=== PATIENT | male | born 1990 | race Caucasian/White ===

== ENCOUNTER 2017-05-05 00:29 | Emergency (ER) | payer OTHER ==
[2017-05-05 01:34] LABS: Hematocrit 44 % (42-52); Hemoglobin 15.5 g/dl (14.0-18.0); Mean Corpuscular HGB Conc 35 g/dl (31-36); Mean Corpuscular Hemoglobin 31 pg (27-31); Mean Corpuscular Volume 87 fL (80-94); Mean Platelet Volume 8 um3 (7.4-10.4); Red Blood Count 5.08 10^6/ul (4.0-5.4); Red Cell Distribution Width 14 % (10.5-15); White Blood Count 6.7 10^3/ul (3.5-10.8)
[2017-05-05 01:46] LABS: ALT 31 U/L (7-52); Acetaminophen < 15 mcg/mL; Albumin 4.6 g/dL (3.2-5.2); Alkaline Phosphatase 49 U/L (34-104); BUN/Creatinine Ratio 14.4 (8-20); Blood Urea Nitrogen 14 mg/dL (6-24); CO2 Carbon Dioxide 26 mmol/L (22-32); Calcium 9.1 mg/dL (8.6-10.3); Chloride 102 mmol/L (101-111); EGFR African American 119.4 (>60); EGFR Non-African American 92.8 (>60); Globulin 2.2 g/dL (2-4); Glucose 126 mg/dL (70-100); Salicylate < 2.50 mg/dL (<30); Sodium 137 mmol/L (133-145); Total Protein 6.8 g/dL (6.4-8.9)
[2017-05-05 01:48] LABS: Alcohol 408 mg/dL (<10)
[2017-05-05 02:18] LABS: AST 25 U/L (13-39); Anion Gap 9 mmol/L (2-11); Potassium 3.8 mmol/L (3.5-5.0); TSH (Thyroid Stimulating Horm) 0.84 mcIU/mL (0.34-5.60)
[2017-05-05] MEDS ORDERED: Thiamine IV 100 MG, Folic Acid IV* 1 MG, Multiple Vitamin IV ADULT* 10 ML in D5NS 0.9% ... IV ONE (02:20)
[2017-05-05] MEDS ORDERED: Thiamine IV* 100 MG, Folic Acid IV* 1 MG, Multiple Vitamin IV ADULT* 10 ML in NS 0.9% 1... IV ONE (02:21)
--- NOTE | 2017-05-05 02:38 | ED ---
Substance Abuse/Use - HPI Summary HPI Summary: Pt here w/ ETOH intoxication. Reports drinking earlier tonight (not sure what) and then he does not remember the details. Told staff he drank so much because he had an argument with another friend who was drinking too much. States he has not drank ETOH in many months, maybe 6 months. Does admit he takes anti- depressants, trying to get off of SSRI and transition to SNRI - he does not recall the names. Denies any other drug use, medical issues, or injuries tonight including but not limited to head injury and vomiting. He reports he's here because his friends were concerned. - History Of Current Complaint Chief Complaint: EDSubstanceAbuse Stated Complaint: ALCOHOL CONSUMPTION Time Seen by Provider: 05/05/17 00:56 Hx Obtained From: Patient - Allergies/Home Medications Allergies/Adverse Reactions: Allergies Allergy/AdvReac Type Severity Reaction Status Date / Time No Known Allergies Allergy Verified 05/05/17 00:36 PMH/Surg Hx/FS Hx/Imm Hx Previously Healthy: Yes Endocrine/Hematology History: Denies: Hx Anticoagulant Therapy, Hx Blood Disorders Psychiatric History: Reports: Hx Anxiety, Hx Depression - SSRI/SNRI Infectious Disease History: No Infectious Disease History: Denies: Traveled Outside the [place] in Last 30 Days - Family History Known Family History: Positive: None - pt denies - Social History Occupation: Employed Part-time, Student Lives: Dormitory/Roommates Alcohol Use: Weekly Alcohol Amount: reports prior to tonight, hasn't drank in 6 months Hx Substance Use: No Substance Use Type: Reports: None Hx Tobacco Use: Yes Smoking Status (MU): Current Every Day Smoker - pt has vaporizer with him tonight Review of Systems - ROS Summary Review of Systems Summary: Level 5 caveat - intoxicated Positive: Fatigue Cardiovascular: Negative Negative: Chest Pain Respiratory: Negative Negative: Shortness Of Breath Negative: Abdominal Pain, Vomiting, Nausea Genitourinary: Negative Positive: no symptoms reported Musculoskeletal: Negative Negative: Arthralgia, Myalgia Neurological: Negative Negative: Headache Psychological: Other - no complaints All Other Systems Reviewed And Are Negative: Yes Physical Exam Triage Information Reviewed: Yes Vital Signs On Initial Exam: Initial Vitals Temp Pulse Resp BP Pulse Ox 98.1 F 110 14 121/49 94 05/05/17 00:32 05/05/17 00:32 05/05/17 00:32 05/05/17 00:32 05/05/17 00:32 Vital Signs Reviewed: Yes Appearance: Positive: No Pain Distress - pt sleeping upon entrance to room, Well -Nourished, Ill-Appearing - appears intoxicated - rousable w/ voice stimulation - delayed/deliberate response but mostly appropriate Head/Face: Positive: Normal Head/Face Inspection - NTTP, no acute signs of trauma Eyes: Positive: EOMI, LASHAWN, Other: - sclera injected ENT: Positive: Hearing grossly normal, TMs normal - no hemotympanum Dental: Negative: Dental Fracture @ Neck: Positive: Supple, Nontender Respiratory/Lung Sounds: Positive: Clear to Auscultation, Breath Sounds Present , Other - NTTP. Negative: Rales, Rhonchi, Stridor, Tracheal Deviation, Wheezes Cardiovascular: Positive: Tachycardia, S1, S2. Negative: Murmur, Rub Abdomen Description: Positive: Nontender, Soft Bowel Sounds: Positive: Present Musculoskeletal: Positive: Other - moving spontaneously Neurological: Positive: Sensory/Motor Intact, CN Intact II-III, Facial Symmetry , Other - deliberate speech as mentioned above Psychiatric: Positive: Other - no SI/HI - [place] Coma Scale Coma Scale Total: 15 Diagnostics - Vital Signs Vital Signs Temp Pulse Resp BP Pulse Ox 05/05/17 00:32 98.1 F 110 14 121/49 94 - Laboratory Lab Results: Lab Results 05/05/17 05/05/17 Range/Units 00:40 00:40 WBC 6.7 (3.5-10.8) 10^3/ul RBC 5.08 (4.0-5.4) 10^6/ul Hgb 15.5 (14.0-18.0) g/dl Hct 44 (42-52) % MCV 87 (80-94) fL MCH 31 (27-31) pg MCHC 35 (31-36) g/dl RDW 14 (10.5-15) % Plt Count 275 (150-450) 10^3/ul MPV 8 (7.4-10.4) um3 Neut % (Auto) 47.0 (38-83) % Lymph % (Auto) 40.5 (25-47) % [place] % (Auto) 10.5 H (1-9) % Eos % (Auto) 1.3 (0-6) % Baso % (Auto) 0.7 (0-2) % Absolute Neuts (auto) 3.2 (1.5-7.7) 10^3/ul Absolute Lymphs (auto) 2.7 (1.0-4.8) 10^3/ul Absolute Monos (auto) 0.7 (0-0.8) 10^3/ul Absolute Eos (auto) 0.1 (0-0.6) 10^3/ul Absolute Basos (auto) 0 (0-0.2) 10^3/ul Absolute Nucleated RBC 0.01 10^3/ul Nucleated RBC % 0.2 Sodium 137 (133-145) mmol/L Potassium 3.8 (3.5-5.0) mmol/L Chloride 102 (101-111) mmol/L Carbon Dioxide 26 (22-32) mmol/L Anion Gap 9 (2-11) mmol/L BUN 14 (6-24) mg/dL Creatinine 0.97 (0.67-1.17) mg/dL Est GFR ( Amer) 119.4 (>60) Est GFR (Non-Af Amer) 92.8 (>60) BUN/Creatinine Ratio 14.4 (8-20) Glucose 126 H (70-100) mg/dL Calcium 9.1 (8.6-10.3) mg/dL Total Bilirubin 0.30 (0.2-1.0) mg/dL AST 25 (13-39) U/L ALT 31 (7-52) U/L Alkaline Phosphatase 49 (34-104) U/L Total Protein 6.8 (6.4-8.9) g/dL Albumin 4.6 (3.2-5.2) g/dL Globulin 2.2 (2-4) g/dL Albumin/Globulin Ratio 2.1 (1-3) TSH 0.84 (0.34-5.60) mcIU/mL Salicylates < 2.50 (<30) mg/dL Acetaminophen < 15 mcg/mL Serum Alcohol 408 H* (<10) mg/dL Result Diagrams: 05/05/17 00:40 05/05/17 00:40 Lab Statement: Any lab studies that have been ordered have been reviewed, and results considered in the medical decision making process. Course/Dx - Course Course Of Treatment: Pt here for ETOH intoxication. Denies injuries or vomiting tonight and no pain upon questioning and exam. CN II-XII grossly intact and no signs of trauma. Pulse ox in high 80's so O2 applied via NC. Banana bag ordered with ETOH 400's - pt denies daily drinking - will implement WAM to intervene as needed. No imaging ordered per pt and EMS report denying injury and pt w/o apparent signs of injury. Signed out to Dr. Newsome. - Diagnoses Provider Diagnoses: Alcohol intoxication Discharge - Discharge Plan Condition: Guarded Disposition: OTHER Discharge Disposition Comment: signed out to Dr. Newsome
[2017-05-05 06:03] VITALS: BP 91/46
[2017-05-05 06:51] LABS: Urine Bilirubin Negative (Negative); Urine Glucose Negative (Negative); Urine Nitrite Negative (Negative)
[2017-05-05 07:06] LABS: Benzodiazepine Urine Screen None Detected (None Detect)
--- NOTE | 2017-05-05 12:36 | CONSULT ---
Consult Consult: Mr. Ayala woke up, was clinically sober and had a sober ride home. He was D/ C'd in stable condition with a diagnosis of alcohol intoxication.
== END 2017-05-05 08:49 ==
LOC: ED 00:29
DX: F10.129 Alcohol abuse with intoxication, unspecified (principal)
CPT/HCPCS: 36415; 80053; 80307; 80320; 80329; 81003; 84443; 85025; 99283; G0480; J3411

== ENCOUNTER → 2017-05-17 22:13 | Emergency (ER) | payer OTHER ==
[2017-05-17 22:52] LABS: Urine Bilirubin Negative (Negative); Urine Glucose Negative (Negative); Urine Nitrite Negative (Negative)
[2017-05-17 22:59] LABS: Hematocrit 49 % (42-52); Hemoglobin 16.9 g/dl (14.0-18.0); Mean Corpuscular HGB Conc 35 g/dl (31-36); Mean Corpuscular Hemoglobin 30 pg (27-31); Mean Corpuscular Volume 87 fL (80-94); Mean Platelet Volume 7 um3 (7.4-10.4); Red Blood Count 5.62 10^6/ul (4.0-5.4); Red Cell Distribution Width 13 % (10.5-15); White Blood Count 6.7 10^3/ul (3.5-10.8)
[2017-05-17 23:08] LABS: Benzodiazepine Urine Screen None Detected (None Detect)
[2017-05-17 23:13] LABS: ALT 48 U/L (7-52); Alkaline Phosphatase 67 U/L (34-104); Blood Urea Nitrogen 10 mg/dL (6-24); CO2 Carbon Dioxide 27 mmol/L (22-32); Chloride 103 mmol/L (101-111); EGFR African American 128.5 (>60); EGFR Non-African American 99.9 (>60); Globulin 2.7 g/dL (2-4); Glucose 113 mg/dL (70-100); Sodium 139 mmol/L (133-145); Total Protein 7.7 g/dL (6.4-8.9)
[2017-05-17 23:14] LABS: Acetaminophen < 15 mcg/mL; Alcohol 354 mg/dL (<10); Anion Gap 9 mmol/L (2-11); Salicylate < 2.50 mg/dL (<30)
[2017-05-17 23:29] LABS: TSH (Thyroid Stimulating Horm) 1.09 mcIU/mL (0.34-5.60)
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
--- NOTE | 2017-05-18 07:05 | ED ---
Dorys Parekh Rebecca, scribed for Zulema Carpio MD on 05/18/17 at 0443 . Progress - Progress Note Progress Note: Pt was signed out from DOC Gamez, pending disposition, awaiting EtOH metabolism and proceeding MHE. Re-Evaluation - Re-Evaluation First Eval Re-Evaluation Time: 02:35 Comment: The pt is moving in bed in no respiratory distress. Course/Dx - Course Course Of Treatment: Pt was signed out from DOC Gamez, pending disposition, awaiting EtOH metabolism and MHE evaluation. Serum alcohol of 354 at 2250. Pt will be signed out to the incoming provider. Pt's condition is stable. - Diagnoses Provider Diagnoses: ETOH abuse The documentation as recorded by the Dorys garg Rebecca accurately reflects the service I personally performed and the decisions made by , Zulema Carpio MD.
[2017-05-18 14:18] VITALS: BP 132/84
--- NOTE | 2017-05-21 13:06 | ED ---
Mackenzie Parekh Edward, scribed for Jay Gomez MD on 05/18/17 at 0733 . Progress - Progress Note Progress Note: PE - VITAL SIGNS: Reviewed. GENERAL: Patient is a well-developed and nourished male who is sleeping comfortable in the stretcher. Patient is not in any acute respiratory distress. There is alcohol in the patient's breath. HEAD AND FACE: No signs of trauma. No ecchymosis, hematomas or skull depressions. No sinus tenderness. EYES: PERRLA, EOMI x 2, No injected conjunctiva, no nystagmus. EARS: Hearing grossly intact. Ear canals and tympanic membranes are within normal limits. MOUTH: Oropharynx within normal limits. NECK: Supple, trachea is midline, no adenopathy, no JVD, no carotid bruit, no c- spine tenderness, neck with full ROM. CHEST: Symmetric, no tenderness at palpation LUNGS: Clear to auscultation bilaterally. No wheezing or crackles. CVS: Regular rate and rhythm, S1 and S2 present, no murmurs or gallops appreciated. ABDOMEN: Soft, non-tender. No signs of distention. No rebound no guarding, and no masses palpated. Bowel sounds are normal. EXTREMITIES: FROM in all major joints, no edema, no cyanosis or clubbing. NEURO: Alert and oriented x 3. No acute neurological deficits. Speech is normal and follows commands. SKIN: Dry and warm Re-Evaluation - Re-Evaluation First Eval Re-Evaluation Time: 02:35 Comment: The pt is moving in bed in no respiratory distress. 2 Re-Evaluation Time: 07:20 Change: Unchanged Comment: Sleeping comfortably Course/Dx - Course Course Of Treatment: Pt was signed out from DOC Gamez, pending disposition, awaiting EtOH metabolism and MHE evaluation. Serum alcohol of 354 at 2250. Pt will be signed out to the incoming provider. Pt's condition is stable. Dr. Blevins reviewed the case for this pt. Recommends the pt be d/c home with f/u with [facility]. Dx substance induced mood disorder. - Diagnoses Provider Diagnoses: ETOH abuse, Substance induced mood disorder The documentation as recorded by the Mackenzie garg Edward accurately reflects the service I personally performed and the decisions made by , Jay Gomez MD.
== END ==
LOC: ED 22:13
DX: F10.14 Alcohol abuse with alcohol-induced mood disorder (principal); Y90.8 Blood alcohol level of 240 mg/100 ml or more
CPT/HCPCS: 36415; 80053; 80307; 80320; 80329; 81003; 84443; 85025; 99285; G0480

== ENCOUNTER 2019-01-05 05:53 | Day surgery (SDC) | payer OTHER ==
--- NOTE | 2019-01-01 19:52 | HP ---
CC: Dr. 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 PLANNED PROCEDURE: Revision of circumcision (revision of adhesive bands). SURGEON: Dr. Perez. HISTORY OF PRESENT ILLNESS: Ga Ayala is a 28-year-old gentleman, who was circumcised at and has had problems with adhesions between the shaft and the glans secondary to residual portion cau sing significant pain with erection and causing concern regarding the appearance. He was examined an d noted to have 2 areas of adhesions between the dorsal aspect of the shaft and the glans (accretion of the penis) and after a thorough discussion of the procedure and possible risks including bleeding, infection, altered appearance, and altered sensation, he would like to have this addressed and is no w being brought in for revision of the circumcision. PAST MEDICAL HISTORY: Significant for depression, anxiety, history of subdural hematoma on 2 separat e occasions in 2008 and 2014. PAST SURGICAL HISTORY: Significant for inguinal hernia. MEDICATIONS: On admission: 1. 10 mg daily. 2. Gabapentin 300 mg twice a day. 3. Melatonin 5 mg p.r.n. 4. Lamotrigine 50 mg daily. 5. Truvada once a day. ALLERGIES: No known drug allergies. FAMILY HISTORY: Noncontributory. SOCIAL HISTORY: Smoking history: He is a nonsmoker. REVIEW OF SYSTEMS: He is otherwise in excellent health. He denies any chest pain or shortness of br eath. PHYSICAL EXAMINATION GENERAL: Reveals a pleasant healthy-appearing young gentleman. VITAL SIGNS: Blood pressure is 110/70, pulse 61 per minute and regular, oxygen saturation 98% on bailey m air, temperature 97.4. LUNGS: Clear bilaterally. CARDIOVASCULAR: Regular rate and rhythm. S1, S2. ABDOMEN: Soft without masses. Testicles are descended bilaterally and are normal. Phallus is circum cised with above described residual foreskin causing bridges of tissue to exist between the glans and the dorsal aspect of the shaft. IMPRESSION AND PLAN: Plan is for division of these adhesive bands and I have explained the procedur e in detail to Ga and he appears to understand and wishes to proceed as planned. [id number] #: [id number]
[~2019-01-05 05:53] MED LIST: Buffered Lidocaine 1% SYRIN* 1 ML/SYRINGE INTRADERM ONE
[2019-01-05] MEDS ORDERED: Lactated Ringers 1000 ML Bag* 1,000 ML IV SCH (06:00)
[2019-01-05] MEDS ORDERED: cefTRIAXone(*) 1 GM ADVAN/BAG ONE (06:12)
[2019-01-05] MEDS ORDERED: Buffered Lidocaine 1% SYRIN* 1 ML/SYRINGE INTRADERM ONE (06:12)
[2019-01-05] MEDS ORDERED: fentaNYL* 50 MCG/ML 2 ML VIAL (100 MCG VIAL) ONE (07:10)
[2019-01-05] MEDS ORDERED: Midazolam* 1 MG/ML 2 ML VIAL (2 MG) ONE ×2 (07:10→07:43)
[2019-01-05] MEDS ORDERED: Bacitracin OINTMENT* 0.5% 0.5 oz TUBE ONE (07:23)
[2019-01-05] MEDS ORDERED: Lidocaine 1% INJ* 10 MG/ML 30 ML SDV ONE (07:23)
[2019-01-05] MEDS ORDERED: Famotidine IV* 10 MG/ML 2 ML (20 mg) ONE (07:25)
[2019-01-05] MEDS ORDERED: Ketorolac INJ* 30 MG/ML 1 ML VIAL ONE (07:34)
[2019-01-05] MEDS ORDERED: Lidocaine 2% PF * 5 ML VIAL ONE (07:34)
[2019-01-05] MEDS ORDERED: Propofol* 10 MG/ML 20 ML BTL ONE (07:34)
[2019-01-05] MEDS ORDERED: Dexamethasone IV* 4 MG/ML 1 ML (4 MG) ONE (07:34)
[2019-01-05] MEDS ORDERED: KETAMINE HCL* 50 MG/ML 10 ML VIAL ONE (07:45)
[2019-01-05] MEDS ORDERED: fentaNYL* 50 MCG/ML 2 ML VIAL (100 MCG VIAL) IV PRN (07:57)
[2019-01-05] MEDS ORDERED: HYDROcodone/ACETAMIN 5-325 MG* 1 TAB PO PRN ×2 (07:57)
[2019-01-05] MEDS ORDERED: Acetaminophen TAB* 325 MG PO PRN (07:57)
[2019-01-05] MEDS ORDERED: DiMENhydriNATE IV* 50 MG/ML VIAL IV PUSH PRN (07:57)
[2019-01-05] MEDS ORDERED: PROCHLORPERAZINE INJ 5 MG/ML 2 ML VIAL IV PRN (07:57)
[2019-01-05] MEDS ORDERED: Ondansetron INJ* 2 MG/ML VIAL IV PRN (07:57)
[2019-01-05] MEDS ORDERED: Naloxone* 0.4 MG/ML 1 ML VIAL IV PRN (07:57)
[2019-01-05 09:19] VITALS: BP 131/73
--- NOTE | 2019-01-05 11:48 | OP ---
DATE OF OPERATION: 01/05/19 - [facility] DATE OF : 88 SURGEON: Praneeth Perez MD ANESTHESIOLOGIST: Dr. Singh. ANESTHESIA: Local plus intravenous sedation. PRE-OP DIAGNOSIS: Penile accretion (adhesions between penile shaft and glance as a result of prior circumcision). POST-OP DIAGNOSIS: Penile accretion (adhesions between penile shaft and glance as a result of prior circumcision). OPERATIVE PROCEDURE: Revision of circumcision (division of adhesive bands). COMPLICATIONS: None. BLOOD LOSS: Minimal. SPECIMEN: None (residual foreskin removed, but not sent). POSTOPERATIVE CONDITION: Stable. INDICATIONS: Ga Ayala is a 28-year-old gentleman who had undergone circumcision as an infant. He has several adhesive bands between the glans and the penile shaft causing him pain and discomfort especially with erections. He would like to have this removed. I have discussed the procedure in detail with him including the possible risks of bleeding, infection, altered appearance and sensation and scarring. He understands and wishes to proceed as planned. DESCRIPTION OF PROCEDURE: After administration of intravenous sedation, external genitalia were prepped and draped in the usual sterile fashion. There were two bands fairly substantial encompassing a large part of the dorsal aspect of the penis and these were adhesive bands between the glans and the remainder of the penile shaft. Local anesthetic using 1% Xylocaine was infiltrated into both of these bands. Next, the residual foreskin was sharply divided flush with the glans and with the penile shaft to remove as much of it as possible. Once this was done, the two ends where the foreskin had been detached from were repaired using interrupted sutures of 4-0 chromic. Once this had been done, the bridge of tissue had been completely removed and the cut edges had been appropriately controlled in terms of hemostasis with a 4-0 chromic. An identical procedure was carried out on the other large adhesive band also and this was also successfully removed and the divided edges were controlled using interrupted sutures of 4-0 chromic. At the end of the procedure, hemostasis appears satisfactory. Bacitracin ointment and Xeroform dressing was applied. The patient tolerated the procedure satisfactorily and was transferred back to the recovery area in stable condition. [id number]/[id number] #: [id number] [facility] [place] [facility]
== END 2019-01-05 09:36 | disposition home or self-care (01) ==
LOC: OR 05:53
PROVIDERS: ATTEND Urology
DX: N50.9 Disorder of male genital organs, unspecified (principal); L90.5 Scar conditions and fibrosis of skin; F41.8 Other specified anxiety disorders
CPT/HCPCS: A9270-GY; J0696; J1100; J1885; J2250; J2704; J3010